=== PATIENT | female | born 1960 | race Caucasian/White ===

== ENCOUNTER 2018-06-17 08:18 | Day surgery (SDC) | payer OTHER ==
[~2018-06-17] VITALS: Ht 162.6 cm; Wt 79.8 kg
[~2018-06-17 08:18] MED LIST: ADVIL PM1 TABLET PO; ADVIL200 MG PO; CALCIUM + D3 E1 EACH PO; OMEPRAZOLE40 M1 PO; PHENTERMINE H37.5 MG PO; PREMPRO 0.621 TABLET PO; PROZAC20 MG PO; SYNTHROID50 MCG PO
== END 2018-06-17 09:40 | disposition home or self-care (01) ==
LOC: PAIN 08:18 → SDC 09:00 → PAIN 09:00
PROC: 3E0R33Z Introduction of Anti-inflammatory into Spinal Canal, Percutaneous Approach (ICD-10-PCS; principal; 2018-06-17)
PROC: 3E0R3BZ Introduction of Anesthetic Agent into Spinal Canal, Percutaneous Approach (ICD-10-PCS; principal; 2018-06-17)
PROC: B01B1ZZ Fluoroscopy of Spinal Cord using Low Osmolar Contrast (ICD-10-PCS; principal; 2018-06-17)
DX: M54.12 Radiculopathy, cervical region (principal); M50.20 Other cervical disc displacement, unspecified cervical region; M47.816 Spondylosis without myelopathy or radiculopathy, lumbar region; F41.9 Anxiety disorder, unspecified
CPT/HCPCS: J1100; J2250; J3010